=== PATIENT | female | born 1955 | race Caucasian/White ===

== ENCOUNTER 2020-01-30 13:39 | Outpatient (CLI) | payer OTHER, SELFPAY ==
--- NOTE | ~2020-01-30 | US_ITS ---
US retroperitoneal comp 01/30/2020 14:13 Procedure: Realtime transabdominal ultrasound of the kidneys and bladder. Indication: Chronic kidney disease stage III Comparison: Ultrasound dated 12/31/2017 Findings: Renal echotexture is normal bilaterally without hydronephrosis or renal calculi. There is a hypoechoic mass of the right kidney measuring 1.5 x 1.3 x 1.2 cm, likely a cyst, slightly enlarged c ompared with prior examination. There is a left renal cyst measuring 1.7 cm maximum dimension. No samantha id renal masses are identified. Right kidney measures 9.5 cm and left kidney measures 9.7 cm. Bladde r within normal limits. Impression: 1: Bilateral renal cysts, slightly larger on the right. Reviewed, dictated and finalized at location B. SERVICE TECH Impression: 1: Bilateral renal cysts, slightly larger on the right.
== END 2020-01-30 13:40 | disposition home or self-care (01) ==
PROVIDERS: PCP Internal Medicine; Visit Provider Internal Medicine
DX: N18.3 Chronic kidney disease, stage 3 (moderate) (principal); N28.1 Cyst of kidney, acquired
CPT/HCPCS: 76770

== ENCOUNTER 2020-08-24 16:34 | Outpatient (CLI) | payer OTHER, SELFPAY ==
--- NOTE | ~2020-08-24 | MM_ITS ---
EXAMINATION: MM screening [facility] BI w slick HISTORY: Screening mammogram TECHNIQUE: Craniocaudal and mediolateral oblique 3-D tomosynthesis images were obtained and synthetic 2-D images were generated. CAD analysis was submitted and interpreted. COMPARISON: 07/23/2019, 07/14/2018 bilateral digital screening mammogram examinations BREAST PARENCHYMAL COMPOSITION: There are scattered areas of fibroglandular density. FINDINGS: There is no evidence of suspicious mass, calcification, or architectural distortion to sugg est malignancy in either breast. There has been no suspicious interval change. IMPRESSION: 1. No mammographic evidence of malignancy. 2. Recommend routine screening mammography in one year. BI-RADS Category 1: Negative Reviewed, dictated and finalized at location B.
== END 2020-08-24 16:35 | disposition home or self-care (01) ==
LOC: ANHIMG 16:37
PROVIDERS: PCP Internal Medicine; Visit Provider Internal Medicine
DX: Z12.31 Encounter for screening mammogram for malignant neoplasm of breast (principal)
CPT/HCPCS: 77063; 77067

== ENCOUNTER 2021-02-21 13:35 | Outpatient (CLI) | payer OTHER, SELFPAY ==
--- NOTE | ~2021-02-21 | US_ITS ---
EXAMINATION: US retroperitoneal comp DATE: 02/21/2021 14:15 INDICATION: Renal cyst EXAMINATION: US retroperitoneal comp DATE: 02/21/2021 14:15 INDICATION: Stage III chronic kidney disease TECHNIQUE: Multiple ultrasound grayscale images of the kidneys were obtained. COMPARISON: 01/30/2020 FINDINGS: The right kidney measures 9.5 x 4.8 x 3.9 cm. The left kidney measures 9.7 x 4.1 x 5.7 cm. The kidney s demonstrate normal echogenicity. 7 mm anechoic cyst at the upper pole of the right kidney. 1.7 cm a nechoic cyst at the lower pole of the left kidney. There is no hydronephrosis in either kidney. No s tones identified. The bladder is normal. Again seen are couple anechoic hepatic cysts with thin inter nal septations the larger measuring 3.1 cm and the smaller measuring 2.2 cm. IMPRESSION: 1. Cysts in the liver and both kidneys. Otherwise normal kidneys with no hydronephrosis. Reviewed, dictated and finalized at location A. IMPRESSION: 1. Cysts in the liver and both kidneys. Otherwise normal kidneys with no hydro nephrosis.
== END 2021-02-21 13:36 | disposition home or self-care (01) ==
PROVIDERS: PCP Internal Medicine; Visit Provider Internal Medicine
DX: N28.1 Cyst of kidney, acquired (principal); K76.89 Other specified diseases of liver
CPT/HCPCS: 76770

== ENCOUNTER 2021-12-09 00:05 | Day surgery (SDC) | payer OTHER, SELFPAY ==
[2021-11-28 14:56] VITALS: BMI 30.2
--- NOTE | 2021-12-09 07:01 | WPDANESEPPF ---
Anes - Initial Pre Proc Eval Procedure: Operation Date: 12/09/21 11:00 Proposed Procedures p Esophagogastroduodenoscopy - Bharathi Mcneil MD Date/Time: 12/09/21 07:01 Surgeon: Bharathi Mcneil MD Pre Op Diagnosis: GERD Patient Data Age: 66 Gender: F Height: 1.57 m Weight: 75 kg Allergies Allergy/AdvReac Type Severity Reaction Status Date / Time ciprofloxacin Allergy unknown Verified 12/09/21 09:43 Home Medications Medication Instructions Recorded Confirmed Type cetirizine 10 mg tablet 5 mg PO DAILY PRN 01/13/20 12/09/21 History pyridostigmine bromide 180 mg 180 mg PO DAILY tablet 01/13/20 12/09/21 History tablet,extended release duloxetine 60 mg capsule,delayed See Rx Instructions .ROUTE 02/16/21 12/09/21 Rx release .COMPLEX #90 cap omeprazole 40 mg capsule,delayed See Rx Instructions .ROUTE 02/16/21 12/09/21 Rx release .COMPLEX #90 cap rosuvastatin 10 mg tablet See Rx Instructions .ROUTE 02/16/21 12/09/21 Rx .COMPLEX #90 tablet lisinopril 40 mg tablet 40 mg PO DAILY #90 tablet 08/08/21 12/09/21 Rx azathioprine 50 mg tablet 200 mg PO BID tablet 10/04/21 12/09/21 History metformin 500 mg tablet,extended 500 mg PO BID #60 tablet 10/24/21 12/09/21 Rx release 24 hr Patient hx anesthesia problems: none Family hx anesthesia problems: none Results Review: All pre-operative results and documents have been reviewed as part of the pre-operative evaluation. [facility] Past Medical History Medical History (Updated 12/09/21 @ 07:02 by Jhonatan Wray DO) CKD (chronic kidney disease) stage 3, GFR 30-59 ml/min Essential hypertension ISAIAH (generalized anxiety disorder) GERD (gastroesophageal reflux disease) Mixed hyperlipidemia Myasthenia gravis Social History Social History (Updated 10/04/21 @ 13:30 by BONNIE Blackburn) Smoking status: Never smoker Second hand tobacco smoke exposure: Yes Alcohol intake: current Alcohol use details: minimal Substance use: never Substance use type: does not use Anes - Eval Final PreProcedure Day of Procedure 12/09/21 07:01 Patient weight: obese Heart: regular rate and rhythm Lungs: clear to auscultation and normal air movement Airway: Mallampati scale class III Neurological: alert and oriented Last oral intake: >/= 8 hours ASA classification: III Emergent: no Anesthetic plan: proceed Anesthesia type and monitoring: general GIVS and standard monitoring Results Review: All pre-operative results and documents have been reviewed as part of the pre-operative evaluation. Informed Consent: The patient's anesthetic plan and its attendant risks and benefits were discussed with the patient/family/POA. Questions were solicited and answers provided to the satisfaction of the patient/family/POA.
[2021-12-09 09:44] VITALS: BP 162/87; PULSE 81; RESP 17; TEMP 36.2; O2SAT 98; BMI 30.3
[2021-12-09] MEDS: LACTATED RINGERS 1,000 ML 150 ML IV CONT (09:54)
[2021-12-09 10:00] LABS: Glucose Point of Care 131 mg/dl (65-105)
--- NOTE | 2021-12-09 10:19 | PM.HPGS ---
History of Present Illness History of Present Illness Consent: Risks, benefits, and alternatives have been discussed and questions answered. Patient agrees to proceed with procedure. Chief complaint: GERD Narrative: Jennifer Perry is a 66 year old female with gerd, using omeprazole daily for over a year that is helping but if she skips a dose will get symptomatic, never had egd Review of Systems Constitutional: Constitutional: Denies headache(s) and Denies weakness Eyes: Eyes: Denies blurry vision ENT: Reports Normal hearing present, Denies headache(s) and Denies neck pain Cardiovascular: Cardiovascular: Denies chest pain and Denies dyspnea Respiratory: Respiratory: Denies dyspnea Gastrointestinal: Gastrointestinal: Reports no additional gastrointestinal complaints Genitourinary: Genitourinary: Denies dysuria Musculoskeletal: Musculoskeletal: Denies neck pain Integumentary/Breasts: Skin/Breast: Denies dry skin Neurologic: Reports Normal hearing present, Denies headache(s) and Denies weakness Psychiatric: Psychiatric: Denies anxiety Endocrine: Endocrine: Denies change in body appearance Hematologic/Lymphatic: Hematologic/Lymphatic: Denies easy bleeding Allergic/Immunologic: Allergic/Immunologic: Denies urticaria PMFSH Past Medical History Medical History (Updated 12/09/21 @ 07:02 by Jhonatan Wray DO) CKD (chronic kidney disease) stage 3, GFR 30-59 ml/min Essential hypertension ISAIAH (generalized anxiety disorder) GERD (gastroesophageal reflux disease) Mixed hyperlipidemia Myasthenia gravis Social History Social History (Updated 10/04/21 @ 13:30 by Angelica Alas [facility]) Smoking status: Never smoker Second hand tobacco smoke exposure: Yes Alcohol intake: current Alcohol use details: minimal Substance use: never Substance use type: does not use Meds Home Medications and Allergies Home Medications Medication Instructions Recorded Confirmed Type cetirizine 10 mg tablet 5 mg PO DAILY PRN 01/13/20 12/09/21 History pyridostigmine bromide 180 mg 180 mg PO DAILY tablet 01/13/20 12/09/21 History tablet,extended release duloxetine 60 mg capsule,delayed See Rx Instructions .ROUTE 02/16/21 12/09/21 Rx release .COMPLEX #90 cap omeprazole 40 mg capsule,delayed See Rx Instructions .ROUTE 02/16/21 12/09/21 Rx release .COMPLEX #90 cap rosuvastatin 10 mg tablet See Rx Instructions .ROUTE 02/16/21 12/09/21 Rx .COMPLEX #90 tablet lisinopril 40 mg tablet 40 mg PO DAILY #90 tablet 08/08/21 12/09/21 Rx azathioprine 50 mg tablet 200 mg PO BID tablet 10/04/21 12/09/21 History metformin 500 mg tablet,extended 500 mg PO BID #60 tablet 10/24/21 12/09/21 Rx release 24 hr Allergies Allergy/AdvReac Type Severity Reaction Status Date / Time ciprofloxacin Allergy unknown Verified 12/09/21 09:43 Vital Signs Vital Signs - 24 hr 12/09/21 09:44 Temperature 97.2 F L Pulse Rate 81 Respiratory Rate 17 Blood Pressure 162/87 H Pulse Oximetry 98 Exam Const: General: comfortable and no acute distress HENMT: General nose exam: Normal nares present Eyes: General: appearance normal, both eyes and all related structures Neck: Neck: no JVD Resp: Auscultation: clear to auscultation bilaterally Cardio: Rate: regular rate Rhythm: regular rhythm GI: Inspection: non-distended GI Palp: Yes Soft to palpation Skin: General skin exam: normal color Neuro: General: gait normal Speech: normal speech Extrem: General: normal to inspection Psych: Mental Status: mental status grossly normal Assessment and Plan Assessment and plan (1) GERD (gastroesophageal reflux disease): Qualifiers: Esophagitis presence: esophagitis presence not specified Qualified Code(s): K21.9 - Gastro-esophageal reflux disease without esophagitis Code(s): K21.9 - Gastro-esophageal reflux disease without esophagitis Status: Acute Assessment and Plan:
[2021-12-09] MEDS: BENZOCAINE (*SP) 60 ML SPRAY CAN (HURRICAINE) 1 SPRAY MUCOUS MEM (10:28)
[2021-12-09 10:37] VITALS: BP 108/57; PULSE 67; RESP 16; O2SAT 96
[2021-12-09 10:47] VITALS: BP 132/74; PULSE 69; RESP 14; O2SAT 98
[2021-12-09 10:57] VITALS: BP 133/68; PULSE 64; RESP 17; O2SAT 99
--- NOTE | 2021-12-09 11:03 | SUR.PHASEII ---
OSMIN jay family
== END 2021-12-09 11:06 | disposition home or self-care (01) ==
PROVIDERS: PCP Internal Medicine; Visit Provider Internal Medicine Gastroenterology
PROC: 0DJ08ZZ Inspection of Upper Intestinal Tract, Via Natural or Artificial Opening Endoscopic (ICD-10-PCS; CPT 43235; principal; 2021-12-09 11:00)
DX: K21.9 Gastro-esophageal reflux disease without esophagitis (principal); K29.70 Gastritis, unspecified, without bleeding; I12.9 Hypertensive chronic kidney disease with stage 1 through stage 4 chronic kidney disease, or unspecified chronic kidney disease; N18.30 Chronic kidney disease, stage 3 unspecified; K29.60 Other gastritis without bleeding; E78.2 Mixed hyperlipidemia; G70.00 Myasthenia gravis without (acute) exacerbation; Z79.84 Long term (current) use of oral hypoglycemic drugs; E66.9 Obesity, unspecified; Z68.30 Body mass index [BMI] 30.0-30.9, adult
CPT/HCPCS: 43239; 82948; 88305; J2704; J7120

== ENCOUNTER 2021-12-19 07:50 | Outpatient (CLI) | payer OTHER, SELFPAY ==
--- NOTE | ~2021-12-19 | MM_ITS ---
EXAMINATION: MM screening [facility] BI w slick HISTORY: Screening mammogram TECHNIQUE: Craniocaudal and mediolateral oblique 3-D tomosynthesis images were obtained and synthetic 2-D images were generated. CAD analysis was submitted and interpreted. COMPARISON: 08/24/2020, 07/23/2019, 07/04/2018 BREAST PARENCHYMAL COMPOSITION: There are scattered areas of fibroglandular density. FINDINGS: There is no evidence of suspicious mass, calcification, or architectural distortion to sugg est malignancy in either breast. There has been no suspicious interval change. IMPRESSION: 1. No mammographic evidence of malignancy. 2. Recommend routine screening mammography in one year. BI-RADS Category 1: Negative Reviewed, dictated and finalized at location A. SPECIALISTS
== END 2021-12-19 07:51 | disposition home or self-care (01) ==
LOC: ANHIMG 07:52
PROVIDERS: PCP Internal Medicine; Visit Provider Internal Medicine
DX: Z12.31 Encounter for screening mammogram for malignant neoplasm of breast (principal)
CPT/HCPCS: 77063; 77067

== ENCOUNTER 2023-03-24 13:51 | Emergency (ER) | payer MEDICARE, OTHER, SELFPAY ==
[2023-03-24 14:08] VITALS: BP 154/76; PULSE 73; RESP 18; TEMP 36.8; O2SAT 100
--- NOTE | 2023-03-24 14:12 | ED.GENADULT ---
HPI - General Adult General Chief complaint: Upper Respiratory Infection Stated complaint: cold symptoms Time Seen by Provider: 03/24/23 14:13 Source: patient Mode of arrival: ambulatory Limitations: no limitations History of Present Illness HPI narrative: 68-year-old female patient presents to the [facility] with complaints cold symptoms for the past 10 days. Patient states she has had some drainage from the eyes, nasal drainage, congestion and a cough. Patient states the cough only occurs when she lays down. Denies fevers, body aches or chills. Denies any abdominal pain, nausea, vomiting or diarrhea. Patient states she has been taking some [id number] Bernadette, D congestion. Another cold and flu medications without relief. Related Data Home Medications Medication Instructions Recorded Confirmed cetirizine 10 mg tablet 5 mg PO DAILY PRN Allergy Symptoms 01/13/20 03/24/23 pyridostigmine bromide 180 mg 180 mg PO DAILY 01/13/20 03/24/23 tablet,extended release (Mestinon Timespan) azathioprine 50 mg tablet 200 mg PO BID 10/04/21 03/24/23 Allergies Allergy/AdvReac Type Severity Reaction Status Date / Time ciprofloxacin Allergy unknown Verified 03/24/23 14:15 Review of Systems Review of Systems: CONSTITUTIONAL: Denies fever, chills, or sweats. EYES: Denies visual changes, redness, or discharge. ENT: Positive rhinorrhea, congestion, denies sore throat, or otalgia. CARDIOVASCULAR: Denies chest pain, palpitations, or edema. RESPIRATORY: positive cough or dyspnea. GASTROINTESTINAL: Denies abdominal pain, nausea, vomiting, or diarrhea. GENITOURINARY: Denies dysuria or hematuria. SKIN: Denies rash or itching. MUSCULOSKELETAL: Denies back pain, joint pain, or myalgia. NEUROLOGIC: Denies headache, numbness, or weakness. PSYCHIATRIC: Denies anxiety or depression. [facility] Past Medical History Medical History CKD (chronic kidney disease) stage 3, GFR 30-59 ml/min Essential hypertension ISAIAH (generalized anxiety disorder) GERD (gastroesophageal reflux disease) Mixed hyperlipidemia Myasthenia gravis Social History Social History Smoking status: Unknown if ever smoked Second hand tobacco smoke exposure: Yes Alcohol intake: current Alcohol use details: minimal Substance use: never Substance use type: does not use Comments At the time of my signature I agree with nursing past medical history, surgical, social, and family history. There is no relevant family history pertinent to the presenting complaint. Exam Narrative: GENERAL: Well-appearing, well-nourished, and in no acute distress. HEAD: Normocephalic, atraumatic. EYES: PERRLA and EOMI. ENT: Nares with erythema edema noted bilateral, no rhinorrhea or epistaxis. Mucous membranes moist. postnasal drip noted. Bilateral TMs are clear no erythema or foreign bodies the canal. NECK: Supple. No lymphadenopathy CHEST: Clear to auscultation. No respiratory distress. HEART: Regular rate and rhythm. No murmur heard. Normal peripheral pulses. ABDOMEN: Soft, nontender, nondistended, normal active bowel sounds. EXTREMITIES: Normal range of motion. No edema. SKIN: Warm, dry, no rash. NEURO: No focal deficits. Alert and oriented x3. Course Course Level of Care: Express Care Visit Vital Signs Vital signs: Vital Signs Temperature 36.8 C 03/24/23 14:08 Pulse Rate 73 03/24/23 14:08 Respiratory Rate 18 03/24/23 14:08 Blood Pressure 154/76 H 03/24/23 14:08 Pulse Oximetry 100 03/24/23 14:08 Oxygen Delivery Room Air 03/24/23 14:08 Temperature 36.8 C 03/24/23 14:08 Pulse Rate 73 03/24/23 14:08 Respiratory Rate 18 03/24/23 14:08 Blood Pressure 154/76 H 03/24/23 14:08 Pulse Oximetry 100 03/24/23 14:08 Oxygen Delivery Room Air 03/24/23 14:08 Vital signs reviewed. The patient has been informed mario
== END 2023-03-24 15:08 | disposition home or self-care (01) ==
PROVIDERS: Emergency Provider Nurse Practitioner Family; PCP Internal Medicine
DX: J32.9 Chronic sinusitis, unspecified (principal); I12.9 Hypertensive chronic kidney disease with stage 1 through stage 4 chronic kidney disease, or unspecified chronic kidney disease; N18.30 Chronic kidney disease, stage 3 unspecified; K21.9 Gastro-esophageal reflux disease without esophagitis; E78.2 Mixed hyperlipidemia; G70.00 Myasthenia gravis without (acute) exacerbation
CPT/HCPCS: 99213; G0463

== ENCOUNTER 2023-11-30 09:54 | Outpatient (CLI) | payer MEDICARE, SELFPAY ==
--- NOTE | ~2023-11-30 | MM_ITS ---
EXAMINATION: MM screening [facility] BI w slick HISTORY: Screening mammogram TECHNIQUE: Craniocaudal and mediolateral oblique 3-D tomosynthesis images were obtained and synthetic 2-D images were generated. CAD analysis was submitted and interpreted. COMPARISON: 12/19/2021, 08/24/2020, 07/23/2019 BREAST PARENCHYMAL COMPOSITION: There are scattered areas of fibroglandular density. FINDINGS: No suspicious mass, calcification, or architectural distortion are identified in either terence ast to suggest malignancy. There has been no suspicious interval change. IMPRESSION: 1. No mammographic evidence of malignancy. 2. Recommend routine screening mammography in one year. BI-RADS Category 1: Negative Reviewed, dictated and finalized at location A. [employer]
--- NOTE | ~2023-11-30 | DEXA_ITS ---
Bone Density Report Name: LUIS E SIERRA Age: 68 Sex: Female Ethnicity: White Date of : 1955 Indication: postmenopausal; screening for osteoporosis; Referring Provider: MECHELLE FITZPATRICK Study: Bone densitometry was performed. Exam Date: November 30, 2023 Accession number: [id number] Bone Density: Region BMD T-score Z-score Classification AP Spine(L1-L4) 1.041 -0.1 2.0 Normal Femoral Neck (Left) 0.655 -1.7 0.0 Osteopenia Total Hip (Left) 0.860 -0.7 0.8 Normal Femoral Neck (Right) 0.658 -1.7 0.1 Osteopenia Total Hip (Right) 0.801 -1.2 0.3 Osteopenia Total Hip Mean 0.830 -1.0 0.6 Normal World Health Organization criteria for BMD impression classify patients as: Normal (T-score at or above -1.0), Osteopenia (T-score between -1.0 and -2.5), or Osteoporosis (T-score at or below -2.5). 10-year Fracture Risk(1): Major Osteoporotic Fracture 10% Hip Fracture 1.6% Reported Risk Factors: [place] (), Neck BMD=0.655, BMI=30.3 (1) FRAX(R) Version 3.08. Fracture probability calculated for an untreated patient. Fracture probability may be lower if the patient has received treatment. Clinical Information Provided by Patient: Patient maximum height was 62.0 No regular weight bearing exercise Drinks caffeinated beverages Onset of menses at age 12 Number of children 1 Impression: The patient has low bone mass, based on the Left Femoral Neck T-score. The patient has an estimated ten-year risk of hip fracture of 1.6% and an estimated ten-year risk of major fracture of 10%, based on the WHO FRAX algorithm. Discussion: BONE DENSITY IS LOW AT ONE OR MORE SKELETAL SITES. This patient's lowest T-score is low at one or more skeletal sites. It meets the World Health Organization's (WHO) criteria for ?low bone mass? (T-score between -1.0 and -2.5). The patient's 10-year risk of fracture as calculated by FRAX is less than the threshold where pharmacological therapy is recommended by the National Osteoporosis Foundation (NOF). However, all treatment decisions require clinical judgment and consideration of individual patient factors, including patient preferences, comorbidities, previous drug use, risk factors not captured in the FRAX model (e.g., frailty, falls, vitamin D deficiency, increased bone turnover, interval significant decline in bone density) and possible under or overestimation of fracture risk by FRAX. The patient should follow a healthful lifestyle (good nutrition with adequate calcium and vitamin D, and appropriate weight-bearing exercise). Follow-Up: Consider repeating this study in 2 to 3 years to reassess this patient's status, or sooner if there is some new clinical indication. Reported by: [facility] on 11/30/2023 10:40:00 AM.
== END 2023-11-30 09:55 | disposition home or self-care (01) ==
LOC: ANHIMG 09:56
PROVIDERS: PCP Family Medicine; Visit Provider Family Medicine
DX: Z12.31 Encounter for screening mammogram for malignant neoplasm of breast (principal); Z78.0 Asymptomatic menopausal state; M85.89 Other specified disorders of bone density and structure, multiple sites
CPT/HCPCS: 77063; 77067; 77080

== ENCOUNTER 2024-02-14 08:11 | Outpatient (CLI) | payer MEDICARE, SELFPAY ==
--- NOTE | ~2024-02-14 | US_ITS ---
Limited Abdominal Sonogram: Real-time sonographic imaging of the right upper quadrant was performed. Clinical History: Abnormal serum enzyme levels Findings: The liver appears normal with no evidence of solid mass lesion or bile duct dilatation. Ma in portal vein demonstrates normal direction of flow. Hepatic cyst present. The gallbladder is absent , compatible prior cholecystectomy. The common bile duct measures 7 mm. The visualized pancreas, aor ta, and IVC are unremarkable. Impression: No significant abnormality seen. Reviewed, dictated and finalized at location M. Impression: No significant abnormality seen.
== END 2024-02-14 08:12 ==
LOC: MICIMG 08:12
PROVIDERS: PCP Family Medicine; Visit Provider Family Medicine
DX: N28.1 Cyst of kidney, acquired (principal); R74.8 Abnormal levels of other serum enzymes
CPT/HCPCS: 76705

== ENCOUNTER 2025-07-29 09:48 | Outpatient (CLI) | payer MEDICARE, SELFPAY ==
--- NOTE | ~2025-07-29 | MM_ITS ---
EXAMINATION: MM screening [facility] BI w slick HISTORY: Screening TECHNIQUE: Craniocaudal and mediolateral oblique 3-D tomosynthesis images were obtained and synthetic 2-D images were generated. CAD analysis was submitted and interpreted. COMPARISON: Mammograms from 11/30/2023 and 12/19/2021 BREAST PARENCHYMAL COMPOSITION: There are scattered areas of fibroglandular density. FINDINGS: There is no evidence of suspicious mass, calcification, or architectural distortion in either breast to suggest malignancy. There has been no significant interval change. IMPRESSION: 1. No mammographic evidence of malignancy. Recommend routine screening mammography in one year. BI-RADS Category 1: Negative Reviewed, dictated and finalized at location Q. IMPRESSION: 1. No mammographic evidence of malignancy. Recommend routine screening mammogra phy in one year. BI-RADS Category 1: Negative
--- OUTSIDE RECORDS SUMMARY | 2025-07-29 10:50 | XMS_ITS | Clinical Summary ---
Author Organization [facility] Address [facility] [place] [address] Care Team Providers Care Office Worker Name Role Phone Unavailable Primary Care Provider Unavailabl e Social History Tobacco Use Types Packs/Day Years Used Date Smoking Tobacco: Never Assessed Comments Unknown Sex and Gender Information Value Date Recorded Sex Assigned at Not on file Legal Sex Female 5:55 PM CDT Gender Identity Not on file Sexual Orientation Not on file Plan of Treatment Health Maintenance Due Date Last Done Comments Colorectal Cancer Screening Colonoscopy (10 Years) 1955 Hepatitis C 02/25/1972 DTaP, Tdap and Td Vaccines ( 1 - Tdap) 1973 Mammogram Screening 1994 Pneumococcal Vaccine: 50+ Ye ars (1 of 1 - PCV) 02/25/2004 Zoster Vaccines (1 of 2) 02/25/2004 Dexa Scan (General) 2019 COVID-19 Vaccine ( - 2023-2 5 season) 2025 RSV Immunization or 60+ Years (1 - 1-dose 75+ series) 2029 Meningococcal B Vaccine Aged Out No l onger eligible based on patient's age to complete this topic Meningococcal Vaccine Aged Out No baljinder romero eligible based on patient's age to complete this topic RSV Immunizations Under 20 Months Aged Out No longer eligible based on patient's age to complete this topic
--- OUTSIDE RECORDS SUMMARY | 2025-07-29 10:50 | XMS_ITS | Clinical Summary ---
Author Organization [facility] Address [address] [place] [address] Care Team Providers Care Trade Mark Attorney Name Role Phone Kevin Santos MD Primary Care Provider [phone] Source Comments [facility],non-owned Affiliates and Associated Physician Practices is amultiple site organization consisting of ambulatory clinics and hospital sitesin [place], [place], [place] and [place]. This disclosure is being madepursuant to the Care Everywhere program and may not contain all information available regarding this patient. Last updated 18.[facility] Allergies Active Allergy Reactions Criticality Noted Date Comments Ciprofloxacin Other Low 09/12/2017 myasthenia gravis Hydroxychloroquine Skin Reactions Medium 05/24/2021 Skin discoloration: whole tops of my arms were dark brown Medications * Be aware that medications may not be up to date on this document. Alwaysverify current medications with the patient. cetirizine (ZYRTEC) 10 MG tablet Take 1 (one) tablet by mouth as needed 10/31/2017 Active rosuvastatin (CRESTOR) 10 MG tablet Take 1 (one) tablet by mouth once daily Active calcium 600 MG tablet Take 1 (one) tablet by mouth daily with food Active omeprazole (PRILOSEC) 40 MG capsule 1 (one) capsule once daily 03/02/2021 Active Carboxymethylce ll-Glycerin PF 0.5-0.9 % SOLN Instill 1 drop into both eyes once daily as needed for Dry Eyes Active DULoxetine (CYMBALTA) 60 MG capsule Take 1 (one) capsule by mouth once daily 12/17/2021 Active valsartan (Diovan) 320 MG tablet Take 1 (one) tablet by mouth once daily Active pyRIDostigmine (Mestinon) 60 MG tablet Take 1 (one) tablet by mouth Two times a week 60 tablet 3 02/12/2024 Active amLODIPine (Norvasc) 2.5 MG tablet Take 1 (one) tablet by mouth once daily 01/02/2025 Active Cholecalciferol (vitamin D3) 1.25 MG (10283 UT) capsule Take 1 (one) capsule by mouth every 7 days 02/18/2025 Active pyRIDostigmine CR (Mestinon Timespan) 180 MG tabletIndicatio ns:Myasthenia gravis (HCC),MG (myasthenia gravis) (HCC) Take 1 (one) tablet by mouth 2 times daily 180 tablet 3 05/02/2025 Active azaTHIOprine (Imuran) 50 MG tabletIndicatio ns:MG (myasthenia gravis) (HCC),Myastheni a gravis (HCC),Cervical myelopathy (HCC) TAKE 2 TABLETS BY MOUTH TWICE DAILY 360 tablet 05/19/2025 Active Active Problems Problem Noted Date Diagnosed Date Dermatochalasis of both upper eyelids 01/05/2025 Mechanical ptosis of bilateral eyelids 5 MG (myasthenia gravis) 08/14/2024 Nuclear age-related cataract, left eye 8 Pseudophakia 09/03/2018 Xerosis cutis 09/12/2017 Family history of malignant neoplasm of other organs or systems 09/12/2017 Other melanin hyperpigmentation 09/12/2017 Seborrheic keratoses 09/12/2017 Melanocytic nevi of face 09/12/2017 Personal history of other di seases of the musculoskeletal system and connective tissue 09/12/2017 Nevus, non-neoplastic 09/12/2017 Nevus of face 09/12/2017 Solar lentiginosis 09/12/2017 Family history of melanoma 09/12/2017 History of Sjogren's disease 09/12/2017 Elias angioma 09/12/2017 Monoclonal gammopathy 08/22/2017 Generalized anxiety disorder 09/09/2015 Systemic lupus erythematosus 12/05/2013 Sicca syndrome 12/05/2013 SLE-Sjogren overlap syndrome 12/05/2013 Other specified abnormal immunological findings in serum 12/03/2013 LIIDA positive 12/03/2013 Anxiety state 02/27/2011 Low back pain 08/23/2010 Myasthenia gravis without (acute) exacerbation 0 08/23/2010 Lumbosacral radiculopathy Encounters Date Type Department Care Team Description 05/28/2025 1:30 PM CDT - 05/28/2025 11:59 PM CDT Hospital Encounter [facility] OP DRAW STATION [address] [place] [address] Discharge Disposition: Home or Self Care 05/28/2025 Travel 05/17/2025 Refill [facility] - Neurology [address] [place] [phone] Becky David MD Refill Request 04/29/2025 Refill [facility] - Neurology [address] [place] [phone] Becky David MD MEDICATION REFILL from Last 3 Months Immunizations Immunization Administration Dates Next Due INFLUENZA VACCINE, HIGH-DOSE , QUADR. (FLUZONE HIGH-DOSE QUADRIVALENT; 65Y+), 0.7 ML (HD-IIV4) 08/24/2020 INFLUENZA VACCINE, QUADR. (F LUZONE; FLULAVAL; FLUARIX; AFLURIA QUADRIVALENT; 6MO+), 0.5 ML (IIV4) 09/11/2018 Family History Medical History Relation Name Comments CAD (Coronary Artery Disease) Father Cancer - Other Mother Throat Cancer - Skin, Melanoma Mother Other Other Family history of autoimmune disease. Thyroid Disease Sister 1 [place] Psoriasis Sister 2 Asthma Neg Hx CVA Neg Hx Cancer - Breast Neg Hx Cancer - Skin, Non Melanoma Neg Hx Eczema Neg Hx Hemophilia Neg Hx Relation Name Status Comments Father Mother Other Sister 1 Sister 2 Social History Tobacco Use Types Packs/Day Years Used Date Smoking Tobacco: Never Smokeless Tobacco: Never Tobacco Cessation:Counseling Given: Not Answered Alcohol Use Standard Drinks/Week Comments Not Currently 0 (1 standard drink = 0.6 oz pur e alcohol) PHQ-2 Answer Date Recorded Patient Health Questionnaire-2 Score 0 02/23/2025 Comments No Sex and Gender Information Value Date Recorded Sex Assigned at Not on file Legal Sex Female 5:21 PM [employer] Gender Identity Not on file Sexual Orientation Not on file Last Filed Vital Signs Vital Sign Reading Time Taken Comments Blood Pressure 144/88 03/24/2025 2:42 PM CDT Pulse 83 03/24/2025 2:42 PM CDT Temperature 36.7 C (98 F) 01/05/2025 2:55 PM [employer] Respiratory Rate 20 01/05/2025 3:15 PM [employer] Oxygen Saturation 98% 03/24/2025 2:37 PM CDT Inhaled Oxygen Concentration - - Weight 73 kg (161 lb) 03/24/2025 2:37 PM CDT Height 154.9 cm (5' 1) 02/26/2025 10:10 AM CDT Body Mass Index 30.42 02/26/2025 10:10 AM CDT Plan of Treatment Upcoming Encounters Date Type Department Care Team (Late st Contact Info) Description 08/27/2025 10:00 AM CDT Office Visit [facility] - Orthopedics [address] [place] [phone] Derek White MD [address] [place] [address] OF [place]OP[place]IC [place] [address] 09/03/2025 1:30 PM CDT Office Visit [facility] - Ophthalmology [address] [place] [phone] Alan Flores MD [address] [place] [address] DEPT [place] [phone] 09/22/2025 2:30 PM CDT Office Visit [facility] - Neurology [address] [place] [phone] Becky David MD [address] [place] [address] DIV [place] [phone] Health Maintenance Due Date Last Done Comments BONE DENSITY TESTING 1954 COLON MONITORING 1954 COLONOSCOPY - COLON CA SCREENING 1954 CT COLONOGRAPHY - COLON CA SCREENING 1954 FIT - COLON CA SCREENING 1954 FLEX SIG - COLON CA SCREENING 1954 MAMMOGRAM 1954 COVID-19 VACCINE (#1) 1959 HEPATITIS C SCREENING 02/20/1972 DTAP/TDAP/TD VACCINES (1 - Tdap) 1973 PNEUMOCOCCAL VACCINE 50+ (1 of 2 - PCV) 1973 ZOSTER VACCINE (1 of 2) 1973 Respiratory Syncytial Virus (RSV) Vaccine Pt: or over 60 yrs (1 - Risk 60-74 years 1-dose series) 2014 MEDICARE AWV CALENDAR YEAR 2024 INFLUENZA VACCINE (#1) 2025 08/24/2020, 2017 COLOGUARD (AGES 45-75) - COLON CA SCREENING 02/26/2028 02/25/2025, 08/20/2020 Colorectal Cancer Screening 02/26/2028 SCREENING FOR DIABETES 05/28/2028 , 03/24/2025, 03/12/2019, Additional history exists DEPRESSION SCREENING Completed 02/26/2025 HEPATITIS B VACCINE Aged Out No longe r eligible based on patient's age to complete this topic HIB VACCINE Aged Out No longer eligi ble based on patient's age to complete this topic HPV VACCINE Aged Out No longer eligi ble based on patient's age to complete this topic MENINGOCOCCAL (Group B) VACCINE SHARED DECISION-MAKING Aged Out No longer eligible based on patient's age to complete this topic MENINGOCOCCAL GROUPS A/C/Y/W VACCINE Aged Out No longer eligible based on patient's age to complete this topic Medical Devices Implanted Type Area Computer Specialist Device Identifier Shelf Expiration Date Model / Serial / Lot Lens Iol +19 Simran Hpt C Bcnvx Tecnis - [id number] Implanted:Qty: 1 on 10/30/2018 by Linda Palomares MD at [facility] Left: Eye [employer] 01/30/2021 [id number] / [id number] / Procedures Procedure Name Priority Date/Time Associated Diagnosis Comments CBC W AUTO DIFFERENTIAL Routine 05/28/2025 1:41 PM CDT Therapeutic drug monitoring COMPREHENSIVE METABOLIC PANEL Routine 05/28/2025 1:41 PM CDT Therapeutic drug monitoring HEPATIC FUNCTION PANEL Routine 1:41 PM CDT Therapeutic drug monitoring TSH+FREE T4 PANEL Routine 05/26/2025 10: 42 AM CDT LAB RESULTS ORDER 05/26/2025 from Last 3 Months Results * CBC W/ DIFFERENTIAL (05/28/2025 1:41 PM CDT) WBC 6.4 4.0 - 10.7 x10E9/L 05/28/2025 2:38 PM [facility] RBC Count 4.53 3.90 - 5.20 x10E12/L 05/28/2025 2:38 PM [facility] Hemoglobin 15.0 11.9 - 15.8 g/dL 05/28/2025 2:38 PM [facility] Hematocrit 42.3 34.8 - 46.1 % 05/28/2025 2:38 PM [facility] MCV 93.4 80.0 - 98.0 fL 05/28/2025 2:38 PM [facility] MCH 33.1 26.7 - 33.6 pg 05/28/2025 2:38 PM [facility] MCHC 35.5 31.7 - 36.3 g/dL 05/28/2025 2:38 PM [facility] RDW-CV 13.0 11.3 - 14.8 % 05/28/2025 2:38 PM [facility] Platelet Count 174 150 - 420 x10E9/L 05/28/2025 2:38 PM [facility] MPV 11.1 7.8 - 11.4 fL 05/28/2025 2:38 PM [facility] Neutrophil % 65.7 41.0 - 74.0 % 05/28/2025 2:38 PM [facility] Lymphocyte % 17.0 17.0 - 47.0 % 05/28/2025 2:38 PM [facility] Monocyte % 9.2 3.0 - 11.0 % 05/28/2025 2:38 PM [facility] Eosinophil % 6.7 0.0 - 7.0 % 05/28/2025 2:38 PM [facility] Basophil % 0.9 0.0 - 1.6 % 05/28/2025 2:38 PM [facility] Immature Granulocytes % 0.5 0.0 - 1.0 % 05/28/2025 2:38 PM [facility] Neutrophil Absolute 4.23 1.60 - 7.50 x10E9/L 05/28/2025 2:38 PM [facility] Lymphocyte Absolute 1.09 1.00 - 4.40 x10E9/L 05/28/2025 2:38 PM [facility] Monocyte Absolute 0.59 0.15 - 1.00 x10E9/L 05/28/2025 2:38 PM [facility] Eosinophil Absolute 0.43 0.00 - 0.60 x10E9/L 05/28/2025 2:38 PM [facility] Basophil Absolute 0.06 0.00 - 0.13 x10E9/L 05/28/2025 2:38 PM [facility] Blood BLOOD SPECIMEN / Unknown Lab Venipuncture / Unknown 05/28/2025 1:41 PM CDT 05/28/2025 2:20 PM CDT us Becky David MD LAB - HEMATOLOGY ORDERABLES F inal Result [facility] [address] [place] [address], [facility] [phone] * (ABNORMAL) COMPREHENSIVE METABOLIC PANEL (05/28/2025 1:41 PM CDT) BUN 14 7 - 26 mg/dL 05/28/2025 2:53 PM T [facility] Creatinine 0.99(H) 0.56 - 0.96 mg/dL 05/28/2025 2:53 PM [facility] Sodium 139 136 - 145 mmol/L 05/28/2025 2:53 PM [facility] Potassium 3.9 3.5 - 4.5 mmol/L 05/28/2025 2:53 PM [facility] Chloride 114(H) 98 - 107 mmol/L 05/28/2025 2:53 PM [facility] CO2 24 22 - 29 mmol/L 05/28/2025 2:53 PM [facility] Glucose 119(H) 70 - 99 mg/dL 05/28/2025 2:53 PM [facility] Calcium 8.9 8.4 - 10.2 mg/dL 05/28/2025 2:53 PM [facility] Protein Total 6.9 6.0 - 8.3 g/dL 05/28/2025 2:53 PM [facility] Albumin 4.0 3.4 - 5.0 g/dL 05/28/2025 2:53 PM [facility] Bilirubin Total 0.5 0.2 - 1.2 mg/dL 05/28/2025 2:53 PM [facility] Alkaline Phosphatase 77 40 - 150 U/L 05/28/2025 2:53 PM [facility] ALT 26 5 - 55 U/L 05/28/2025 2:53 PM [facility] AST 29 5 - 34 U/L 05/28/2025 2:53 PM [facility] Anion Gap 1(L) 6 - 16 05/28/2025 2:53 PM [facility] BUN/Creatinine Ratio 14 7 - 23 05/28/2025 2:53 PM [facility] Osmolality Calculated 290 275 - 295 mOsm/kg 05/28/2025 2:53 PM [facility] Albumin/Globulin Ratio 1.4 1.1 - 2.3 05/28/2025 2:53 PM [facility] eGFR by CKD-EPI 61(L) >=90 mL/min/1.7 3 m2 05/28/2025 2:53 PM [facility] Comment:Estimated Glomerular Filtration Rate (eGFR) calculated using the CKD-EPI Creatinine Equation (2020), per the National Kidney Foundation and [place] Society [employer] Nephrology recommendations. Blood BLOOD SPECIMEN / Unknown Lab Venipuncture / Unknown 05/28/2025 1:41 PM CDT 05/28/2025 2:20 PM CDT Becky David MD LAB - CHEMISTRY ORDERABLES Fi nal Result [facility] [address] [place] [address], [facility] [phone] * HEPATIC FUNCTION PANEL (05/28/2025 1:41 PM CDT) Protein Total 6.9 6.0 - 8.3 g/dL 025 2:51 PM [facility] Albumin 4.1 3.4 - 5.0 g/dL 05/28/2025 2:51 PM [facility] Bilirubin Total 0.5 0.2 - 1.2 mg/dL 01/2025 2:51 PM [facility] Bilirubin Conjugated 0.2 0.1 - 0.5 mg/dL 05/28/2025 2:51 PM [facility] Bilirubin Unconjugated 0.3 Unconjugated Bilirubin is a calculated value: Reference ranges have not been established. mg/dL 05/28/2025 2:51 PM [facility] Alkaline Phosphatase 79 40 - 150 U/L 05/28/2025 2:51 PM [facility] ALT 27 5 - 55 U/L 05/28/2025 2:51 PM [facility] AST 29 5 - 34 U/L 05/28/2025 2:51 PM [facility] Albumin/Globulin Ratio 1.5 1.1 - 2.3 05/28/2025 2:51 PM [facility] Blood BLOOD SPECIMEN / Unknown Lab Venipuncture / Unknown 05/28/2025 1:41 PM CDT 05/28/2025 2:20 PM CDT Becky David MD LAB - CHEMISTRY ORDERABLES Fi nal Result [address] [phone], [facility] [phone] * TSH+FREE T4 PANEL (05/26/2025 10:42 AM CDT) TSH 2.660 0.450 - 4.500 uIU/mL [facility] INSURANCE BILL T4 Free 1.04 0.82 - 1.77 ng/dL [facility] INSURANCE BILL 05/26/2025 10:4 2 AM CDT 05/26/2025 Narrative [facility] INSURANCE BILL - 05/27/2025 1:10 PM CDT Performed at: [address] [place] [address] [id number] Coal Digger: Austin Morocho PhD, Phone: [phone] us Becky David MD LAB - CHEMISTRY ORDERABLES Fi nal Result [facility] INSURANCE BILL [address] [place] [address] * LAB RESULTS ORDER (05/26/2025) 05/26/2025 Narrative 05/26/2025 Ordered by an unspecified provider. us Scanned Document LAB - THERAPEUTIC DRUG MONITORI NG ORDERABLES Final Result from Last 3 Months Insurance [facility] MANAGED MEDICARE ADV Advance Directives * Full Code (Latest Code Status on File) Date Activated Date Inactivated Comments 10/30/2018 10:11 AM 10/30/2018 11:30 AM * Full Code Date Activated Date Inactivated Comments 10/29/2018 8:26 AM 10/30/2018 10:11 AM Care Teams Trade Mark Attorney Relationship Specialty Start Date End Date Kevin Sanots MD [address] [place] [address] PCP - General Family Medicine 04/07/25
== END 2025-07-29 09:49 | disposition home or self-care (01) ==
LOC: ANHFOHIMG 09:51
PROVIDERS: PCP Family Medicine; Visit Provider Family Medicine
DX: Z12.31 Encounter for screening mammogram for malignant neoplasm of breast (principal)
CPT/HCPCS: 77063; 77067